=== PATIENT | female | born 1945 | race Caucasian/White ===

== ENCOUNTER 2019-06-10 11:45 | Inpatient (IN) | payer MEDICARE ==
[~2019-06-10] VITALS: Ht 154.9 cm; Wt 59.4 kg
[2019-06-10 11:49] VITALS: BP 99/54
[2019-06-10] MEDS ORDERED: PRESERVISION L1 EACH PO (12:08)
[2019-06-10] MEDS ORDERED: GORDO-VITE A2400 GM PO (12:09)
[2019-06-10] MEDS ORDERED: FOSAMAX 70 MG T70 MG PO (12:10)
[2019-06-10] MEDS ORDERED: ASPIR 8181 M1 PO (12:10)
[2019-06-10] MEDS ORDERED: CALCIUM 600 +1 EA17 PO (12:11)
[2019-06-10] MEDS ORDERED: DIVALPROEX SOD250 M1 PO (12:11)
[2019-06-10] MEDS ORDERED: ALLER-EASE180 MG PO (12:12)
[2019-06-10] MEDS ORDERED: FISH OIL 1,0001 EAC9 PO (12:13)
[2019-06-10] MEDS ORDERED: FLAX SEED OIL1000 MG PO (12:13)
[2019-06-10] MEDS ORDERED: GLUCOSAMINE-CH1 EA15 PO (12:14)
[2019-06-10] MEDS ORDERED: SIMVASTATIN80 MG PO (12:15)
[2019-06-10] MEDS ORDERED: NAMZARIC 28 MG1 EACH PO (12:15)
[2019-06-10] MEDS ORDERED: VENLAFAXINE HCL75 MG PO (12:15)
[2019-06-10] MEDS ORDERED: COLACE100 MG PO (12:16)
[2019-06-10] MEDS ORDERED: ADVIL200 M3 PO (12:17)
[2019-06-10] MEDS ORDERED: FLUTICASONE PRO30 G1 TOP (12:17)
[2019-06-10] MEDS ORDERED: ONDANSETRON ODT4 MG PO (12:18)
[2019-06-10] MEDS ORDERED: MUCINEX100 MG PO (12:18)
[2019-06-10] MEDS ORDERED: RESTASIS1 EACH OPHTHALMIC (12:19)
[2019-06-10] MEDS ORDERED: ALPRAZOLAM XR3 MG PO (12:20)
[2019-06-10] MEDS ORDERED: TIZANIDINE HCL4 M1 PO (12:20)
[2019-06-10 12:31] LABS: ABSOLUTE BASOPHILS 0.1 thou/uL (0.0-0.2); ABSOLUTE LYMPHOCYTES 1.8 thou/uL (0.8-5.3); ABSOLUTE MONOCYTES 0.6 thou/uL (0.0-1.2); ABSOLUTE NEUTROPHILS 5.2 thou/uL (1.6-8.1); BASOPHILS 1.3 %; EOSINOPHILS 0.4 %; HEMATOCRIT 41.5 % (37.0-47.0); HEMOGLOBIN 13.8 gm/dL (12.0-15.0); LYMPHOCYTES 23.2 %; MCH 30.1 pg (26.0-34.0); MCHC 33.2 g/dL (28.0-37.0); MCV 90.7 fL (80.0-100.0); MONOCYTES 7.9 %; MPV 9.4 fl. (7.2-11.1); NUCLEATED RBCS 0 /100WBC; PLATELET COUNT* 267 thou/uL (150-400); POLYS 67.2 %; RBC 4.58 mil/uL (4.20-5.00); RDW-CV 14.6 % (10.5-14.5); WBC 7.7 thou/uL (4.0-11.0)
[2019-06-10 12:42] LABS: CALCIUM 8.8 mg/dL (8.5-10.1); CREATININE 1.3 mg/dL (0.6-1.3); POTASSIUM 4.4 mmol/L (3.5-5.1)
[2019-06-10 12:44] LABS: APTT 26.7 Seconds (25.0-31.3); INR 1.1; PROTIME 10.9 Seconds (9.20-11.50)
[2019-06-10 12:54] LABS: ALBUMIN 3.2 g/dL (3.4-5.0); CK-MB MASS 0.5 ng/mL (<0.5-3.6); MAGNESIUM 2.1 mg/dL (1.8-2.4); TOTAL BILIRUBIN 0.2 mg/dL (<0.1-1.0)
--- NOTE | 2019-06-10 17:09 | EKG ---
[place] [address] ELECTROCARDIOGRAM REPORT Name: MARTGEORGIANAChika MARTE Room: [place] [address] ADM IN .R.#: [id number] Admission: 06/10/19 Attend Phys: Quinton Gonzalez Discharge: Date of : 47 Report #: [id number] THIS REPORT FOR: //name// [facility] ED Test Date: 2019-06-10 Test Time: 11:57:24 Pat Name: GEORGIANA CEVALLOS Department: Room: [facility] Gender: F Sales And Marketing Specialist: : 1945 Requested By: Duke Scanlon Order Number: [id number] : Gonzalez Ortiz Measurements Intervals [place] Rate: 135 P: ND: QRS: -17 QRSD: 123 T: 39 QT: 298 QTc: 447 Interpretive Statements Junctional tachycardia IVCD Baseline wander in lead(s) II,III,aVF,V1,V2,V3,V4,V5 No previous ECG available for comparison Electronically Signed On 06-10-2019 17:08:41 MERCURY CRACKING TESTER by Gonzalez Ortiz [email or web address] <ELECTRONICALLY SIGNED> By: Gonzalez Ortiz MD, [facility] 06/10/19 1708 1157 1157 Gonzalez Ortiz MD, [facility] /EPI
--- NOTE | 2019-06-10 17:11 | EKG ---
[place] [address] ELECTROCARDIOGRAM REPORT Name: MARTJEREMY CAMILOChika TUCKERDEB Room: [place] [address] ADM IN M.R.#: [id number] Admission: 06/10/19 Attend Phys: Quinton Gonzalez Discharge: Date of : 47 Report #: [id number] THIS REPORT FOR: //name// [facility] ED Test Date: 2019-06-10 Test Time: 13:42:06 Pat Name: GEORGIANA CEVALLOS Department: Room: [facility] Gender: F Quality Auditor: : 1945 Requested By: Duke Scanlon Order Number: [id number] MD: Gonzalez Ortiz Measurements Intervals [place] Rate: 117 P: 59 NJ: 320 QRS: -51 QRSD: 128 T: 40 QT: 328 QTc: 458 Interpretive Statements Sinus tachycardia Prolonged NJ interval Nonspecific IVCD with LAD No previous ECG available for comparison Electronically Signed On 06-10-2019 17:10:32 KICKBOXING INSTRUCTOR by Gonzalez Ortiz [email or web address] <ELECTRONICALLY SIGNED> By: Gonzalez Ortiz MD, [facility] 06/10/19 1710 1342 1342 Gonzalez Ortiz MD, FACC /EPI
[2019-06-10 17:15] LABS: URINE BILIRUBIN NEGATIVE (Negative); URINE BLOOD NEGATIVE (Negative); URINE CLARITY CLEAR; URINE COLOR YELLOW; URINE GLUCOSE-RANDOM NEGATIVE (Negative); URINE KETONES TRACE (Negative); URINE LEUKOCYTES-REFLEX NEGATIVE (Negative); URINE NITRITE-REFLEX NEGATIVE (Negative); URINE PROTEIN NEGATIVE (Negative); URINE SPECIFIC GRAVITY 1.015 (1.005-1.030); URINE UROBILINOGEN 0.2 E.U./dl (0.2-1.0)
[2019-06-10 19:27] VITALS: BP 100/57
[2019-06-10 20:00] VITALS: BP 119/59
[2019-06-10] MEDS ORDERED: MACROBID 100 M100 MG PO (21:15)
--- NOTE | 2019-06-10 22:00 | NUR ---
RECEIVED REPORT FROM PROGRAM SCHEDULE CLERKLIAN CADENA AT 1924. PT ARRIVED TO ROOM VIA BED AT 193. SR ON PASSENGER SERVICE AGENT. SPOUSE AT BEDSIDE. HIGH FALL PRECAUTIONS IN PLACE. PT ORIENTED TO SELF ONLY, FORGETFUL. VOICES NO CONCERNS, DENIES PAIN. HOURLY ROUNDING COMPLETED. NEGATIVE SEPSIS SCREENING. CALL LIGHT WITHIN REACH.
[2019-06-11] VITALS: BP 90/40
--- NOTE | 2019-06-11 02:11 | NUR ---
TAKING OVER CARE AT 0200.
[2019-06-11 04:00] VITALS: BP 92/44
--- NOTE | 2019-06-11 05:22 | NUR ---
PT IS ABLE TO COMMUNICATE HER NEEDS TO STAFF WITH SOME DIFFICULTY; SHE IS MOSTLY ONLY ORIENTED TO SELF AND IS CONFUSED AT TIMES. SHE HAS DENIED THE NEED FOR PAIN MEDICATION UP TO THIS TIME. POSSIBLE DISCHARGE TODAY.
[2019-06-11 08:37] VITALS: BP 99/55
[2019-06-11 12:37] VITALS: BP 115/56
[2019-06-11 12:38] VITALS: BP 115/56
--- NOTE | 2019-06-11 13:21 | 2DMMODE ---
[place] [address] 2 D/M-MODE ECHOCARDIOGRAM Name: MARTGEORGIANA DEB Room: [facility] IN [facility]#: [id number] Admission: 06/10/19 Attend Phys: Carmen Urbano Discharge: Date of : 47 Date of Service: 06/11/19 1320 Report #: [id number] THIS REPORT FOR: //name// APPROVED REPORT Study performed: 06/11/2019 10:02:58 EXAM: Comprehensive 2D, Doppler, and color-flow Echocardiogram Patient Location: In-Patient Room #: 218 Status: routine BSA: 1.56 HR: 67 bpm BP: 99/55 mmHg Rhythm: NSR Other Information Study Quality: Fair Technically limited study due to patient had no apical windows, patient confused and would not hold still and unable to poistion patient. Indications Syncope 2D Dimensions IVSd: 8.43 (7-11mm) LVOT Diam: 19.86 (18-24mm) LVDd: 35.64 mm PWd: 9.41 (7-11mm) Ascending Ao: 26.60 (22-36mm) LVDs: 23.33 (25-40mm) Aortic Root: 23.84 mm Pulmonary Valve PV Peak Valerio.: 0.76 m/s PV Peak Gr.: 2.32 mmHg Tricuspid Valve RAP Estimate: 5.00 mmHg TR Peak Gr.: 15.39 mmHg RVSP: 20.00 mmHg PA Pressure: 20.00 mmHg Left Ventricle The left ventricle is normal size. There is normal LV segmental wall motion. There is normal left ventricular wall thickness. Left ventricular systolic function is normal. The left ventricular ejection fraction is within the normal range. LVEF is 55-60%. [place] [address] 2 D/M-MODE ECHOCARDIOGRAM Name: GEORGIANA CEVALLOS Room: [address] IN M.R.#: [id number] Admission: 06/10/19 Attend Phys: Carmen Urbano Discharge: Date of : 47 Date of Service: 06/11/19 1320 Report #: [id number] study is not technically sufficient to allow evaluation of the LV diastolic function. Right Ventricle The right ventricle is normal size. The right ventricular systolic function is normal. Atria The left atrium size is normal. The right atrium size is normal. Aortic Valve The aortic valve is normal in structure. Trace aortic regurgitation. There is no aortic valvular stenosis. Mitral Valve The mitral valve is normal in structure. There is no mitral valve regurgitation noted. No evidence of mitral valve stenosis. Tricuspid Valve The tricuspid valve is normal in structure. Trace tricuspid regurgitation. No pulmonary hypertension. Pulmonic Valve The pulmonary valve is normal in structure. There is no pulmonic valvular regurgitation. Great Vessels The aortic root is normal in size. IVC is normal in size and collapses >50% with inspiration. Pericardium There is no pericardial effusion. <Conclusion> The left ventricle is normal size. There is normal left ventricular wall thickness. Left ventricular systolic function is normal. The left ventricular ejection fraction is within the normal range. LVEF is 55-60%. The right ventricle is normal size. The left atrium size is normal. The aortic valve is normal in structure. Trace aortic regurgitation. There is no [place] [address] 2 D/M-MODE ECHOCARDIOGRAM Name: GEORGIANA CEVALLOS Room: [address] IN .R.#: [id number] Admission: 06/10/19 Attend Phys: Carmen Urbano Discharge: Date of : 47 Date of Service: 06/11/19 1320 Report #: [id number] The mitral valve is normal in structure. The tricuspid valve is normal in structure. IVC is normal in size and collapses >50% with inspiration. There is normal LV segmental wall motion. <ELECTRONICALLY SIGNED> By: Gonzalez Ortiz MD, [facility] 06/11/19 1320 132 1320 Gonzalez Ortiz MD, FACC /INF
--- NOTE | 2019-06-11 14:29 | NUR ---
[facility], faxed dc orders and nurse called report. to transport
--- NOTE | 2019-06-11 14:39 | NUR ---
VSS, ASSUMED CARE IN THE AM, ASSESSMENT PERFORMED AND CHARTED, FALL PRECAUTIONS IN PLACE AND CALL LIGHT IN REACH, PT IS A&O1 ON RA AND IS UP WITH ONE ASSIST, PT IS INCONT, CONFUSED AND STATES PAIN IN LOWER LEGS, PT IS TRACING SR ON THE MONITOR, PT GOAL IS TO DISCHARGE HOME, AT THIS TIME I HAVE CALLED REPORT TO [facility] AND PROVITED REPORT, PT SPOUSE IS PROVITING TRANSPORT, WILL FOLLOW WITH PLAN OF CARE, PT IV AND TELE MONITOR TAKEN OFF
== END 2019-06-11 16:00 | DRG 309 ==
LOC: M.ERS 11:45 → M.TBA-ER 14:48 → M.2W 14:48
PROVIDERS: Emergency Medicine; ADMIT Internal Medicine
DX: I47.1 Supraventricular tachycardia (principal); E44.1 Mild protein-calorie malnutrition; R55 Syncope and collapse; F03.90 Unspecified dementia, unspecified severity, without behavioral disturbance, psychotic disturbance, mood disturbance, and anxiety; M47.892 Other spondylosis, cervical region; Z79.82 Long term (current) use of aspirin; Z79.899 Other long term (current) drug therapy; Z91.81 History of falling

== ENCOUNTER 2019-07-21 21:15 | Emergency (ER) | payer MEDICARE, OTHER ==
[~2019-07-21] VITALS: Ht 165.1 cm; Wt 54.0 kg
[~2019-07-21 21:15] MED LIST: ADVIL200 M3 PO; ALLER-EASE180 MG PO; ALPRAZOLAM XR3 MG PO; ASPIR 8181 M1 PO; CALCIUM 600 +1 EA17 PO; COLACE100 MG PO; DIVALPROEX SOD250 M1 PO; FISH OIL 1,0001 EAC9 PO; FLAX SEED OIL1000 MG PO; FLUTICASONE PRO30 G1 TOP; FOSAMAX 70 MG T70 MG PO; GLUCOSAMINE-CH1 EA15 PO; GORDO-VITE A2400 GM PO; LEVAQUIN 500 M500 M3 PO; MACROBID 100 M100 MG PO; MUCINEX100 MG PO; NAMZARIC 28 MG1 EACH PO; ONDANSETRON ODT4 MG PO; PRESERVISION L1 EACH PO; RESTASIS1 EACH OPHTHALMIC; SIMVASTATIN80 MG PO; TIZANIDINE HCL4 M1 PO; TOPROL XL25 MG PO; VENLAFAXINE HCL75 MG PO; ZOFRAN4 MG PO
[2019-07-21 21:35] LABS: URINE BILIRUBIN NEGATIVE (Negative); URINE BLOOD 3+ (Negative); URINE COLOR YELLOW; URINE GLUCOSE-RANDOM NEGATIVE (Negative); URINE KETONES 1+ (Negative); URINE LEUKOCYTES-REFLEX NEGATIVE (Negative); URINE NITRITE-REFLEX NEGATIVE (Negative); URINE PROTEIN 2+ (Negative); URINE SPECIFIC GRAVITY >= 1.030 (1.005-1.030); URINE UROBILINOGEN 0.2 E.U./dl (0.2-1.0)
[2019-07-21 21:36] LABS: URINE CLARITY SL CLOUDY
[2019-07-21 21:44] LABS: ABSOLUTE BASOPHILS 0.1 thou/uL (0.0-0.2); ABSOLUTE EOSINOPHILS 0.1 thou/uL (0.0-0.7); ABSOLUTE LYMPHOCYTES 2.8 thou/uL (0.8-5.3); ABSOLUTE NEUTROPHILS 5.5 thou/uL (1.6-8.1); BASOPHILS 0.8 %; EOSINOPHILS 0.9 %; HEMATOCRIT 36.1 % (37.0-47.0); HEMOGLOBIN 12.1 gm/dL (12.0-15.0); LYMPHOCYTES 29.5 %; MCH 30.5 pg (26.0-34.0); MCHC 33.5 g/dL (28.0-37.0); MCV 91.2 fL (80.0-100.0); MONOCYTES 10.6 %; MPV 9.5 fl. (7.2-11.1); NUCLEATED RBCS 0 /100WBC; PLATELET COUNT* 171 thou/uL (150-400); POLYS 58.2 %; RBC 3.95 mil/uL (4.20-5.00); RDW-CV 15.2 % (10.5-14.5); WBC 9.4 thou/uL (4.0-11.0)
[2019-07-21 21:52] LABS: CALCIUM 8.4 mg/dL (8.5-10.1); CREATININE 0.9 mg/dL (0.6-1.3)
[2019-07-21 21:53] LABS: INR 1.1; PROTIME 11.3 Seconds (9.20-11.50)
[2019-07-21 21:56] LABS: SQUAMOUS 0-3 Few /LPF (0-3); URINE RBC >20 Many /HPF (0-2)
[2019-07-21 21:57] LABS: CASTS None Seen /LPF (None Seen); CRYSTALS None Seen /LPF (None Seen); MUCUS 0-3 Light strn/LPF (None Seen); URINE WBC-REFLEX >25 Many /HPF (0-5)
[2019-07-21 21:57] LABS: ALBUMIN 2.9 g/dL (3.4-5.0); TOTAL BILIRUBIN 0.3 mg/dL (<0.1-1.0); TOTAL PROTEIN 6.4 g/dL (6.4-8.2)
[2019-07-22 06:15] VITALS: BP 115/74
== END 2019-07-22 06:20 | disposition home or self-care (01) ==
LOC: M.ERS 21:15
PROVIDERS: Emergency Medicine
DX: N39.0 Urinary tract infection, site not specified (principal)

== ENCOUNTER 2019-12-19 08:20 | Inpatient (IN) | payer MEDICARE, OTHER ==
[~2019-12-19] VITALS: Ht 160 cm; Wt 54.2 kg
[2019-12-19 08:25] VITALS: BP 92/39
[2019-12-19] MEDS ORDERED: KAPSPARGO SPRIN25 MG PO (08:43)
[2019-12-19] MEDS ORDERED: XANAX 0.25 MG0.25 MG PO ×2 (08:43→08:44)
[2019-12-19 08:57] LABS: ABSOLUTE BASOPHILS 0.1 thou/uL (0.0-0.2); ABSOLUTE EOSINOPHILS 0.1 thou/uL (0.0-0.7); ABSOLUTE LYMPHOCYTES 2.4 thou/uL (0.8-5.3); ABSOLUTE MONOCYTES 0.4 thou/uL (0.0-1.2); ABSOLUTE NEUTROPHILS 3.7 thou/uL (1.6-8.1); BASOPHILS 0.9 %; EOSINOPHILS 0.8 %; HEMATOCRIT 40.4 % (37.0-47.0); HEMOGLOBIN 13.2 gm/dL (12.0-15.0); MCH 30.2 pg (26.0-34.0); MCHC 32.7 g/dL (28.0-37.0); MCV 92.2 fL (80.0-100.0); MONOCYTES 6.7 %; MPV 9.7 fl. (7.2-11.1); NUCLEATED RBCS 0 /100WBC; PLATELET COUNT* 206 thou/uL (150-400); POLYS 55.6 %; RBC 4.38 mil/uL (4.20-5.00); RDW-CV 14.7 % (10.5-14.5); WBC 6.6 thou/uL (4.0-11.0)
[2019-12-19 09:05] LABS: CALCIUM 8.3 mg/dL (8.5-10.1); CREATININE 1.2 mg/dL (0.6-1.3); POTASSIUM 4.3 mmol/L (3.5-5.1)
[2019-12-19 09:07] LABS: APTT 26.2 Seconds (25.0-31.3); INR 1.1; PROTIME 11.2 Seconds (9.20-11.50)
[2019-12-19 09:10] LABS: ALBUMIN 3.1 g/dL (3.4-5.0); TOTAL BILIRUBIN 0.4 mg/dL (<0.1-1.0); TOTAL PROTEIN 6.5 g/dL (6.4-8.2)
[2019-12-19 11:21] LABS: URINE BILIRUBIN NEGATIVE (Negative); URINE BLOOD NEGATIVE (Negative); URINE CLARITY CLEAR; URINE COLOR YELLOW; URINE GLUCOSE-RANDOM NEGATIVE (Negative); URINE KETONES NEGATIVE (Negative); URINE LEUKOCYTES-REFLEX NEGATIVE (Negative); URINE NITRITE-REFLEX NEGATIVE (Negative); URINE PROTEIN NEGATIVE (Negative); URINE SPECIFIC GRAVITY 1.015 (1.005-1.030); URINE UROBILINOGEN 0.2 E.U./dl (0.2-1.0)
[2019-12-19 11:55] VITALS: BP 106/72
[2019-12-19 17:00] VITALS: BP 114/53
--- NOTE | 2019-12-19 18:59 | NUR ---
PT ADMITTED LOW BLOOD PRESSURES IV FLUIDS TO CONT PT DC'D IV X 2 ENCOURAGED FLUIDS AND FOOD PT WOULD NOT EAT BUT SAID SHE WAS HUNGRY DENIES PAIN BUT SCOWLS CONT. WHEN TALKING WITH HER WAS HERE EARLIER CALL LIGHT IN REACH VERY AGITATED THROWING THINGS ON THE FLOOR THREW TRAY ON HER HAD TO CHANGE BED LINENS X3 INCONTINENT YELLING OUT FOR HELP AND SHE WANTS OUT OF HERE NOT EASILY DIRECTED
[2019-12-19 20:15] VITALS: BP 125/48
[2019-12-20] VITALS (10 sets, daily range): BP systolic 60–142; BP diastolic 30–98
--- NOTE | 2019-12-20 04:38 | NUR ---
ASSUMED CARE AT 1915H, ON RA AND TOLERATED. SEEN ON BED CONFUSED AND IMPULSIVE AT TIMES. NO DISTRESS NOTED. IV INSERTED AND FLUIDS NOT CONTINUE BECAUSE SHE MIGHT PULL HER IV AGAIN. NO HYPOTENSION NOTED. KEPT SAFE AND ORIENT ALL THE TIME. CONTINUE MONITORING AND TOWARD GOALS.
--- NOTE | 2019-12-20 11:05 | EKG ---
[place] [address] ELECTROCARDIOGRAM REPORT Name: MARTJEREMY CAMILON DEB Room: [address] ADM IN .R.#: [id number] Admission: 12/20/19 Attend Phys: Carmen Urbano Discharge: Date of : 47 Date of Service: 12/19/19 0827 Report #: [id number] THIS REPORT FOR: //name// [facility] ED Test Date: 2019-12-19 Test Time: 08:27:29 Pat Name: GEORGIANA CEVALLOS Department: Room: [facility] Gender: F Practice Consultant: DANNI : 1945 Requested By: Moisés Major Order Number: [id number] MD: Gonzalez Ortiz Measurements Intervals [place] Rate: 76 P: 70 DC: 150 QRS: -33 QRSD: 98 T: 54 QT: 416 QTc: 468 Interpretive Statements Sinus rhythm Left atrial enlargement Left axis deviation Anteroseptal infarct, age indeterminate possible Compared to ECG 07/21/2019 08:27:11 Left-axis deviation now present Myocardial infarct finding possible Electronically Signed On 12-20-2019 11:05:16 CDT by Gonzalez Ortiz [email or web address] <ELECTRONICALLY SIGNED> By: Gonzalez Ortiz MD, [facility] 12/20/19 1105 6 6 Gonzalez Ortiz MD, [facility] /EPI
--- NOTE | 2019-12-20 11:11 | NUR ---
ASSUMED PT CARE AT 0715 REPORT RECEIVED FROM NURSE. PT IS AOX1 TO SELF. CONFUSED. ON RA. O2 SATURATION IS 98%. TRACING SR ON SEMICONDUCTOR WAFERS MARKER. BP AT 0800 IS 122/80. BP MEDICATION GIVEN ORDERED. THEN PT BP DROPPED AT 1000 DURING ORTHOSTATIC BP CHECK. SEEE CHART FOR BP MEASUREMENT. PT SEEMS TO QUALIFY FOR POSITIVE ORHTOSTATIC HYPOSTENSION BASED ON VS. WIDE OPEN IV NORMAL SALINE 500 CC BAG. PT KEEP CALLING "HELP", BUT WHEN THE NURSE GOES IN THEIR TO ADDRESS HER SHE JUST STARES AT ME WITHOUT ANSWERING. FALL PRECAUTION IN PLACE. BED ALARM. SIDERAILS UP X4. PT FED BREAKFAST. ATE WELL. TOOK PILLS WITH APPLE SAUCE. WILL CONTINUE TO MONITOR BP
--- NOTE | 2019-12-20 12:04 | NUR ---
SW called [facility] and informed of possible dc tomorrow. They did not need any records faxed today, will review orders/dc instructions that arrive with pt. Pt provides pt rides. Pt has hx of HH with [facility]. No CM needs expressed at this time. SW to remain available to assist with safe dc planning if needs arise.
--- NOTE | 2019-12-20 12:36 | NUR ---
500 CC OF IV NORMAL SALINE INFUSION IS COMPLETED. BP RECHECKED. NEW READING OF 96/49 . HR 61. WILL CONTINUE TO MONITOR PATIENT.
--- NOTE | 2019-12-20 14:02 | 2DMMODE ---
[place] [address] 2 D/M-MODE ECHOCARDIOGRAM Name: GEORGIANA CEVALLOS Room: [address] IN .R.#: [id number] Admission: 12/20/19 Attend Phys: Carmen Urbano Discharge: Date of : 47 Date of Service: 12/20/19 1402 Report #: [id number] THIS REPORT FOR: cc: ANUPAM - Sujey family physician/PCP ANUPAM - Sujey family physician/PCP Gonzalez Ortiz MD [facility] ~ APPROVED REPORT Study performed: 12/20/2019 12:11:32 EXAM: Comprehensive 2D, Doppler, and color-flow Echocardiogram Patient Location: In-Patient Room #: 230 Status: routine BSA: 1.67 HR: 60 bpm BP: 67/38 mmHg Rhythm: NSR Other Information Technically limited study due to uncooperative patient, inability to position patient. Indications Hypotension 2D Dimensions IVSd: 8.75 (7-11mm) LVOT Diam: 19.39 (18-24mm) LVDd: 38.67 mm PWd: 9.25 (7-11mm) Ascending Ao: 26.98 (22-36mm) LVDs: 24.04 (25-40mm) Aortic Root: 26.92 mm Pulmonary Valve PV Peak Valerio.: 0.84 m/s PV Peak Gr.: 2.79 mmHg Tricuspid Valve RAP Estimate: 5.00 mmHg TR Peak Gr.: 14.82 mmHg RVSP: 19.00 mmHg PA Pressure: 19.00 mmHg Left Ventricle The left ventricle is normal size. There is normal LV segmental wall motion. There is normal left ventricular [place] [address] 2 D/M-MODE ECHOCARDIOGRAM Name: GEORGIANA CEVALLOS Room: [address] IN ..#: [id number] Admission: 12/20/19 Attend Phys: Carmen Urbano Discharge: Date of : 47 Date of Service: 12/20/19 1402 Report #: [id number] ventricular systolic function is normal. The left ventricular ejection fraction is within the normal range. LVEF is 60-65%. This study is not technically sufficient to allow evaluation of the LV diastolic function. Right Ventricle The right ventricle is normal size. The right ventricular systolic function is normal. Atria The left atrium size is normal. The right atrium size is normal. Aortic Valve The aortic valve is normal in structure. Trace aortic regurgitation. Mitral Valve The mitral valve is normal in structure. Mild mitral regurgitation. Tricuspid Valve The tricuspid valve is normal in structure. Mild tricuspid regurgitation. No pulmonary hypertension. Pulmonic Valve Pulmonic valve is not well visualized. Great Vessels The aortic root is normal in size. IVC is normal in size and collapses >50% with inspiration. Pericardium There is no pericardial effusion. <Conclusion> The left ventricle is normal size. There is normal left ventricular wall thickness. The left ventricular systolic function is normal. The left ventricular ejection fraction is within the normal range. LVEF is 60-65%. The right ventricle is normal size. The left atrium size is normal. The aortic valve is normal in structure. [place] [address] 2 D/M-MODE ECHOCARDIOGRAM Name: GEORGIANA CEVALLOS Room: [address] IN .R.#: [id number] Admission: 12/20/19 Attend Phys: Carmen Urbano Discharge: Date of : 47 Date of Service: 12/20/191401 Report #: [id number] The mitral valve is normal in structure. Mild mitral regurgitation. The tricuspid valve is normal in structure. There is no pericardial effusion. There is normal LV segmental wall motion. <ELECTRONICALLY SIGNED> By: Gonzalez Ortiz MD, [facility] 12/20/191401 01 01 Gonzalez Ortiz MD, FACC /INF
--- NOTE | 2019-12-20 19:20 | NUR ---
BP STABLE AT 1600 SEE CHART. PT IS INCONTINENT OF URINE. NO BOWEL MVNT DURING THIS SHIFT
[2019-12-21] VITALS (8 sets, daily range): BP systolic 98–140; BP diastolic 46–76
--- NOTE | 2019-12-21 16:48 | NUR ---
DEVI spoke with [place] about dc planning and pt family preference is for pt to eventually move to [place] in [place] that is much closer to [place]. DEVI to follow up with Berenice at [facility] [phone]. [facility] if pt ready to dc tomorrow and then for pt to move to [place] when arranged. DEVI to continue to follow to assist with finalizing safe dc plan.
--- NOTE | 2019-12-21 17:47 | NUR ---
CM COMPLETED INITIAL ASSESSMENT TO DISCUSS D/C PLANNING. PT HAS DEMENTIA ACCORD TO SPOUSE. PT NEEDS ARE INCREASINGS SO PT IS LOOKING FOR LTC PLACEMENT. [facility] CM SPK W/MISHEL AT FACILITY AND PT IS OKAY TO RTRN TO [facility] AT D/C SPOUSE CONT TO WORK W/LTC INSURANCE PROVIDER WHO HAS A PLACEMENT SERVICES AND ARE WORKING ON THINGS. STAFF USES W/C TO "MOVE HER AROUND THE [facility] BECAUSE IT QUICKER" ACCORD TO SPOUSE. [facility] DOES NOT BELEIVE PT WILL BENEFIT FROM SNF D/T "MENTAL DECLINE." PT HAS NO HX OF SNF. [facility] IS NOT ALLOWING HH D/T "LOCKDOWN" (COVID 19). CM TO CONT TO FOLLOW.
[2019-12-22] VITALS (11 sets, daily range): BP systolic 72–136; BP diastolic 35–71
[2019-12-22 07:35] LABS: HEMATOCRIT 35.7 % (37.0-47.0); MCH 30.5 pg (26.0-34.0); MCHC 33.7 g/dL (28.0-37.0); MCV 90.6 fL (80.0-100.0); MPV 9.4 fl. (7.2-11.1); RBC 3.94 mil/uL (4.20-5.00); RDW-CV 14.5 % (10.5-14.5)
[2019-12-22 07:45] LABS: CALCIUM 8.3 mg/dL (8.5-10.1); CREATININE 0.8 mg/dL (0.6-1.3); MAGNESIUM 2.1 mg/dL (1.8-2.4); POTASSIUM 3.8 mmol/L (3.5-5.1)
--- NOTE | 2019-12-22 11:59 | NUR ---
Pt discharging home today, faxed HH orders to [facility]
--- NOTE | 2019-12-22 15:44 | NUR ---
CM initiated transfer to [place], Pt is out of network. in room, in agreement with POC and signed the EMTALA form. Faxed referral to [facility] Transfer Team [phone] p:[phone]. Updated Dr and nurse. FELA started ambulance form and EMTALA form, both on chart and to be completed by nurse once Pt accepted. Chart copied.
--- NOTE | 2019-12-22 16:14 | NUR ---
DEVI spoke with pt earlier in the day about pt possible dc but then pt said that he learned pt blood pressure too low and that pt would not be ready to dc after all. DEVI discussed pt insurance out of network and provided option of initiating transfer to an in network hospital if pt/family wanted this or if they would want to stay, knowing the insurance may or may not cover the stay. Pt was not certain he wanted to move his given the dementia, but decided he wanted to attempt transfer to [place] just in case pt would need extended hospitalization. Dinora QUINONEZ assisted in initiating transfer request. SW to continue to follow and assist with safe dc planning.
--- NOTE | 2019-12-22 19:00 | NUR ---
[facility] TO [facility] CANCELLED DUE TO HYPOTENSION. MIDODRINE ADDED. NS RESTARTED AT 100 MLS/HR. PT PULLING OFF LINES, DC'd IV LINE. NEW IV INSERTED 20G, RT FA. UPDATED. PT INCONTINENT, CHUCKS CHANGED PER NEED. Q2 TURNS PROVIDED.
--- NOTE | 2019-12-22 20:29 | NUR ---
O2 SUPPORT TITRATED DOWN TO 2L/MIN. ENHANCED PRECAUTIONS DC'd. PT UP AD SMITH. TUBAGRIP APPLIED B/L LOWER EXTREMITIES. VSS. INSULIN PER PROTOCOL. HAD A BATH TODAY. PROGRESSING TOWARDS GOALS.
[2019-12-23] VITALS: BP 107/43
[2019-12-23 08:00] VITALS: BP 136/53
[2019-12-23] MEDS ORDERED: MIDODRINE HCL 55 M1 PO (11:04)
[2019-12-23] MEDS ORDERED: NAMENDA 5 MG TAB5 M1 PO (11:04)
[2019-12-23] MEDS ORDERED: ARICEPT10 MG PO (11:04)
[2019-12-23 12:00] VITALS: BP 102/59
--- NOTE | 2019-12-23 12:23 | NUR ---
SW received call from [facility] stating that they did not have beds available yesterday but that they do have beds and can accept to [facility] today. Accepting Dr Bo Cuello, room 612, med surg unit and SW provided this info as well as number to call nurse report to Sha at [phone]. DEVI completed ambulance form and faxed for request of 1530 pick pulling machine tender time and called pt Bobby and informed of pt accepted to [facility] today and details of transfer. Transfer form and ambulance form with nurse/chart. DEVI called [facility] and informed HH no longer needed at this time as pt is transfering to [facility] today. Pt in agreement with plan and Dr Tillman is aware.
--- NOTE | 2019-12-23 15:29 | NUR ---
PT HAS RESTED IN BED,OX1 ONLY. VSS ON RA. PT HAS TOLERATED DIET.REFUSED MEDICATIONS AFTER MULTIPLE ATTEMPTS. IV REPLACED AFTER PT DCD IV. PT TX DUE AT 1530. REPORT CALLED TO [facility] WHO ACCEPTED PT WITHOUT FURTHER QUESTIONS. PT TAKEN BY EMS VIA CART IN AMBULANCE.
== END 2019-12-23 16:35 | DRG 640 ==
LOC: M.ERS 08:20 → M.2W 10:08 → M.TBA-ER 10:08 → M.2W 12:10
PROVIDERS: Emergency Medicine Emergency Medical Services; Internal Medicine; ADMIT Internal Medicine; ATTEND Internal Medicine
DX: E86.0 Dehydration (principal); G93.41 Metabolic encephalopathy; I95.2 Hypotension due to drugs; G30.9 Alzheimer's disease, unspecified; F02.80 Dementia in other diseases classified elsewhere, unspecified severity, without behavioral disturbance, psychotic disturbance, mood disturbance, and anxiety; I10 Essential (primary) hypertension; Z20.828 Contact with and (suspected) exposure to other viral communicable diseases; F32.9 Major depressive disorder, single episode, unspecified; T50.905A Adverse effect of unspecified drugs, medicaments and biological substances, initial encounter; Z87.891 Personal history of nicotine dependence; Y92.89 Other specified places as the place of occurrence of the external cause; Z79.899 Other long term (current) drug therapy